=== PATIENT | male | born 1975 | race Caucasian/White ===

== ENCOUNTER 2018-07-28 18:02 | Emergency (ER) | payer BC ==
[2018-07-28 19:33] VITALS: BP 141/85
--- NOTE | 2018-07-28 19:57 | UC ---
UC General HPI - HPI Summary HPI Summary: 2 WEEKS AGO, PT HAD L EAR PAIN AND CONGESTION. HE WAS SEEN HERE AND TX WITH AUGMENTIN. HE GOT PARTIAL RELIEF BUT NOT HAS DISCOMFORT THAT WORSENING AGAIN. + URI. ALSO NOTES L EYE RED AND IRRITATED. NO VISUAL LOSS OR EYE PAIN. - History of Current Complaint Chief Complaint: UCEar Stated Complaint: RECHECK LEFT EAR PAIN Time Seen by Provider: 07/28/18 19:30 Hx Obtained From: Patient Onset/Duration: Gradual Onset Pain Intensity: 2 Associated Signs & Symptoms: Negative: Fever, Headache - Allergy/Home Medications Allergies/Adverse Reactions: Allergies Allergy/AdvReac Type Severity Reaction Status Date / Time No Known Allergies Allergy Verified 07/28/18 19:31 Home Medications: Home Medications Guaifenesin/Pseudoephedrne HCl [Mucinex D ER Tablet] 1 each PO Q8H 07/28/18 [ History Confirmed 07/28/18] PMH/Surg Hx/FS Hx/Imm Hx Previously Healthy: Yes - Surgical History Surgical History: None - Family History Known Family History: Positive: Hypertension, Other - [place] - Social History Occupation: Employed Full-time Alcohol Use: Occasionally Substance Use Type: None Smoking Status (MU): Never Smoked Tobacco - Immunization History Vaccination Up to Date: Yes Review of Systems Constitutional: Negative Skin: Negative Eyes: Eye Redness - L ENT: Ear Ache - l, Sinus Congestion Respiratory: Negative Cardiovascular: Negative Gastrointestinal: Negative Genitourinary: Negative Motor: Negative Neurovascular: Negative Musculoskeletal: Negative Neurological: Negative Psychological: Negative Is Patient Immunocompromised?: No All Other Systems Reviewed And Are Negative: Yes Physical Exam Triage Information Reviewed: Yes Appearance: Well-Appearing Vital Signs: Initial Vital Signs Temp 98.1 F 07/28/18 19:29 Pulse 79 07/28/18 19:29 Resp 16 07/28/18 19:29 BP 141/85 07/28/18 19:29 Pulse Ox 100 07/28/18 19:29 Vital Signs Reviewed: Yes Eyes: Positive: Conjunctiva Clear - R, Conjunctiva Inflamed - L, Other: - CRUSTING L EYE ENT: Positive: Pharynx normal, Nasal congestion, TMs normal, Other - CANALS CLEAR AND NO AURICULAR ADENOPATHY OR MASTOID TENDERNESS.. Negative: Nasal drainage Neck: Positive: Supple, Nontender, No Lymphadenopathy Respiratory: Positive: Lungs clear, Normal breath sounds Cardiovascular: Positive: RRR, No Murmur Abdomen Description: Positive: Nontender, No Organomegaly, Soft. Negative: Distended, Guarding Bowel Sounds: Positive: Present Musculoskeletal: Positive: ROM Intact Neurological: Positive: Alert Psychological: Positive: Age Appropriate Behavior Skin Exam: Normal Course/Dx - Course Course Of Treatment: NO OM/OE. C/W EUSTACHIAN TUBE DYSFUNCTION. WIIL TX WITH NASAL STEROID AND DECONGESTANT. PT REQUESTING A REFERAL TO DR ERWIN. - Differential Dx - Multi-Symptom Provider Diagnoses: L EUSTACHIAN TUBE DYSFUNCTION. L CONJUNCTIVITIS Discharge - Sign-Out/Discharge Documenting (check all that apply): Patient Departure All imaging exams completed and their final reports reviewed: No Studies - Discharge Plan Condition: Stable Disposition: HOME Prescriptions: Polymyx/Trimethoprim OPTH* [Polytrim OPHTH*] 3 drop LEFT EYE Q3H 7 Days #1 btl Patient Education Materials: Earache (ED), Conjunctivitis (ED) Referrals: Timmy Erwin MD [Medical Doctor] - 7 Days Additional Instructions: DIAGNOSIS: CONJUNCTIVITIS L EYE. EUSTACHIAN TUBE DYSFUNCTION L EAR. START FLONASE OVER THE COUNTER ROUTINELY AND A DECONGESTANT PER LABEL ROUTINELY - Billing Disposition and Condition Condition: STABLE Disposition: Home
== END 2018-07-28 20:05 | disposition home or self-care (01) ==
LOC: UCCORT 18:02
DX: H69.82 Other specified disorders of Eustachian tube, left ear (principal); H10.9 Unspecified conjunctivitis
CPT/HCPCS: 99212; G0463

== ENCOUNTER 2019-11-25 07:04 | Emergency (ER) | payer BC, OTHER ==
[2019-11-25 07:32] VITALS: BP 143/78
--- NOTE | 2019-11-25 07:49 | UC ---
Ear Complaint HPI - HPI Summary HPI Summary: 44 year old male presents with complaint of L ear pain upon awakening this morning around 04:00. He has had nasal congestion for a few days, denies fever, body aches, sore throat nor cough. He states he has a history of ear infections , last one was ~1 year ago. Has taken ibupofen and Mucinex-D with some relief of sx. - History of Current Complaint Chief Complaint: UCEar Stated Complaint: LEFT EAR PAIN Time Seen by Provider: 11/25/19 07:47 Hx Obtained From: Patient Onset/Duration: Sudden Onset Pain Intensity: 1 - Allergies/Home Medications Allergies/Adverse Reactions: Allergies Allergy/AdvReac Type Severity Reaction Status Date / Time No Known Allergies Allergy Verified 11/25/19 07:29 Home Medications: Home Medications Azithromycin TAB* [Zithromax TAB (Z-YIMI) 250 mg #6 tabs] 2 tab PO .TODAY, THEN 1 DAILY #1 yimi 11/25/19 [Rx] Ibuprofen TAB* [Advil TAB*] 600 mg PO ONCE 11/25/19 [History Confirmed 11/25/19] PMH/Surg Hx/FS Hx/Imm Hx Previously Healthy: Yes - Surgical History Surgical History: None - Family History Known Family History: Positive: Hypertension, Other - [place] - Social History Alcohol Use: Occasionally Substance Use Type: None Smoking Status (MU): Never Smoked Tobacco - Immunization History Vaccination Up to Date: Yes Review of Systems All Other Systems Reviewed And Are Negative: Yes Constitutional: Negative: Fever, Chills Skin: Positive: Rash - right lower flores over the past week.. Negative: Bruising ENT: Positive: Ear Ache - left. Negative: Sore Throat Respiratory: Positive: Negative Cardiovascular: Positive: Negative Gastrointestinal: Positive: Negative Genitourinary: Positive: Negative Motor: Positive: Negative Neurovascular: Positive: Negative Musculoskeletal: Positive: Negative Neurological/Mental Status: Positive: Negative Psychological: Positive: Negative Is Patient Immunocompromised?: No Physical Exam Triage Information Reviewed: Yes Appearance: Well-Appearing, No Pain Distress Vital Signs: Initial Vital Signs Temp 98.4 F 11/25/19 07:30 Pulse 77 11/25/19 07:30 Resp 17 11/25/19 07:30 BP 143/78 11/25/19 07:30 Pulse Ox 100 11/25/19 07:30 Vital Signs Reviewed: Yes Eye Exam: Normal ENT: Positive: Pharynx normal, Nasal congestion, Other - right TM normal, left TM with bullae consistent with bullous myringitis. Negative: Sinus tenderness, Uvula midline Neck: Positive: Supple, Nontender, No Lymphadenopathy Respiratory: Positive: Lungs clear, Normal breath sounds. 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 Follow-up with your primary care physician if your symptoms persist or worsen. - Billing Disposition and Condition Condition: STABLE Disposition: Home
== END 2019-11-25 08:10 | disposition home or self-care (01) ==
LOC: UCCORT 07:04
DX: H73.012 Bullous myringitis, left ear (principal); Q80.9 Congenital ichthyosis, unspecified; R21 Rash and other nonspecific skin eruption
CPT/HCPCS: 99212; G0463